=== PATIENT | female | born 1960 | race Hispanic/Latino ===

== ENCOUNTER → 2017-12-30 | Outpatient (CLI) | payer OTHER | END | disposition home or self-care (01) | LOC: RAH 08:38 | PROVIDERS: ATTEND Obstetrics & Gynecology | DX: Z12.31 Encounter for screening mammogram for malignant neoplasm of breast (principal) | CPT/HCPCS: 77067 ==

== ENCOUNTER 2019-01-21 16:31 | Emergency (ER) | payer OTHER ==
[2019-01-21] MEDS ORDERED: IBUPROFEN 200 MG TAB ONE (16:46)
[2019-01-21] MEDS ORDERED: IBUPROFEN 400 MG TABLET ONE (16:46)
[2019-01-21] MEDS ORDERED: MORPHINE SULFATE 4 MG/1ML SYG ONE ×2 (17:12→18:58)
[2019-01-21] MEDS ORDERED: ONDANSETRON HCL 4 MG/2 ML VIAL ONE (17:12)
[2019-01-21] MEDS ORDERED: KETOROLAC TROMETHAMINE 30MG/ML ONE (18:02)
== END 2019-01-21 17:56 | disposition home or self-care (01) ==
LOC: EDH 16:31
DX: S82.001A Unspecified fracture of right patella, initial encounter for closed fracture (principal); E78.5 Hyperlipidemia, unspecified; Z90.710 Acquired absence of both cervix and uterus; W01.0XXA Fall on same level from slipping, tripping and stumbling without subsequent striking against object, initial encounter; Y93.89 Activity, other specified; Y92.89 Other specified places as the place of occurrence of the external cause; Y99.8 Other external cause status
CPT/HCPCS: 29505; 73562; 96374; 96375; 96376; 99283; J1885; J2270 ×2; J2405

== ENCOUNTER 2019-10-31 22:02 | Inpatient (IN) | payer BC, SELFPAY ==
[~2019-10-31] VITALS: Ht 165.1 cm; Wt 77.6 kg
[2019-10-31] MEDS ORDERED: NITROGLYCERIN 0.4 MG SL TAB SL ONE (22:33)
[2019-10-31] MEDS ORDERED: ASPIRIN 325 MG TABLET ONE (22:34)
[2019-10-31 22:39] LABS: BASOPHILS % (AUTO) 0.6 % (0.0-5.0); EOSINOPHILS % (AUTO) 0.5 % (0.0-8.0); HEMATOCRIT 38.1 % (36-48); LYMPHOCYTES % (AUTO) 25.3 % (21.0-51.0); MEAN CORPUSCULAR HEMOGLOBIN 32.4 pg (27.0-33.0); MEAN CORPUSCULAR HGB CONC 34.6 g/dL (32.0-36.0); MEAN CORPUSCULAR VOLUME 93.6 fL (79-99); NEUTROPHILS % (AUTO) 65.6 % (40.0-77.0); NUCLEATED RED BLOOD CELLS 0.1 % (0.0-0.19); PLATELET COUNT (AUTO) 268 K/uL (130-400); RED BLOOD CELL COUNT(AUTO) 4.07 MIL/uL (4.00-5.50); RED CELL DISTRIBUTION WIDTH 12.9 % (11.0-15.5); WHITE BLOOD COUNT (AUTO) 9.1 K/uL (4.8-10.8)
[2019-10-31 22:50] LABS: CREATININE 0.7 mg/dL (0.5-1.5); POTASSIUM 3.8 mmol/L (3.5-5.1)
[2019-10-31 22:55] LABS: ALBUMIN 4.1 g/dL (3.5-5.0); BILIRUBIN,TOTAL 0.3 mg/dL (0.2-1.0); TOTAL PROTEIN, SERUM 7.5 g/dL (6.0-8.3)
[2019-11-01] VITALS (7 sets, daily range): BP systolic 104–134; BP diastolic 59–87
[2019-11-01] MEDS ORDERED: SODIUM CHLORIDE 0.9% 1000ML 1,000 ML IV SCH (00:15)
[2019-11-01] MEDS ORDERED: MORPHINE SULFATE 2 MG/ML 1ML SYG IVP PRN (00:15)
[2019-11-01] MEDS ORDERED: LEVO100 PO (01:34)
[2019-11-01] MEDS ORDERED: LISI10TA7 PO (01:34)
[2019-11-01] MEDS ORDERED: PREM3 PO (01:34)
[2019-11-01] MEDS ORDERED: NAPR-1023 PO (01:34)
[2019-11-01] MEDS ORDERED: NITROGLYCERIN 1GM/1 INCH PACKET TD ONE (03:42)
[2019-11-01 05:08] LABS: BASOPHILS % (AUTO) 0.7 % (0.0-5.0); EOSINOPHILS % (AUTO) 0.5 % (0.0-8.0); HEMATOCRIT 35.9 % (36-48); LYMPHOCYTES % (AUTO) 28.6 % (21.0-51.0); MEAN CORPUSCULAR HEMOGLOBIN 33.1 pg (27.0-33.0); MEAN CORPUSCULAR HGB CONC 34.9 g/dL (32.0-36.0); MONOCYTES % (AUTO) 9.4 % (3.0-13.0); NEUTROPHILS % (AUTO) 60.8 % (40.0-77.0); PLATELET COUNT (AUTO) 233 K/uL (130-400); RED BLOOD CELL COUNT(AUTO) 3.78 MIL/uL (4.00-5.50); RED CELL DISTRIBUTION WIDTH 12.8 % (11.0-15.5); WHITE BLOOD COUNT (AUTO) 9.9 K/uL (4.8-10.8)
[2019-11-01 05:23] LABS: INR 0.99 (0.85-1.15); PROTHROMBIN TIME 10.4 SEC (9.6-11.6)
[2019-11-01 05:28] LABS: ALBUMIN 3.6 g/dL (3.5-5.0); BILIRUBIN,TOTAL 0.4 mg/dL (0.2-1.0); CREATININE 0.5 mg/dL (0.5-1.5); POTASSIUM 3.8 mmol/L (3.5-5.1); TOTAL PROTEIN, SERUM 6.3 g/dL (6.0-8.3)
[2019-11-01 05:32] LABS: HEMOGLOBIN A1C 6.1 % (4.0-6.0)
[2019-11-01] MEDS: NITROGLYCERIN 1GM/1 INCH PACKET TD SCH ×3 (06:00→20:59)
--- NOTE | 2019-11-01 06:12 | NUR ---
critical trop level [ paged hospitalist store person for trop result dr ramirez returned page informed him of troponin level updated md on current medications ordered orders to add lipitor 40 and notify cardiology now for consult patient is asymptomatic ,warm and denies cp, sob, nausea/vomiting vss will continue to monitor
--- NOTE | 2019-11-01 06:28 | NUR ---
cardiology consult paged dr walden lead ruby on rails developer for pending morning consult as directed by dr ramirez. notified dr walden of consult and discussed labs and medications trop jump from 1.85 to 4.[address] walden stated there was nothing he was going to do at the moment but he would be by to see her shortly.
[2019-11-01] MEDS ORDERED: HEPARIN 25000 UNITS/250 ML D5W 250 ML IV SCH (07:00)
[2019-11-01] MEDS ORDERED: HEPARIN SODIUM 5000UNIT/ML 1ML VIAL SQ PRN (07:00)
[2019-11-01] MEDS ORDERED: HEPARIN SODIUM 10000 UNIT/ML 1ML VIAL IJ SCH (07:45)
--- NOTE | 2019-11-01 08:00 | NUR ---
ASSESSMENT / MD ROUNDS PT IS AAOX3 DENIES CP DENIES SOB DENIES NV NO COMPLAINTS, SITTING UPRIGHT IN BED. CALL LIGHT WITHIN REACH. DR CARLISLE AND DR BEKC ROUNDED, SAW PATIENT AND ORDERS RECEIVED. ORDERS CARRIED OUT.
[2019-11-01] MEDS: SODIUM CHLORIDE 0.9% 1000ML 1,000 ML IV SCH ×3 (08:05→21:51)
[2019-11-01] MEDS ORDERED: DiphenhydrAMINE HCL 50 MG/ML VIAL IVP PRN (08:15)
[2019-11-01] MEDS: METOPROLOL TARTRATE 25 MG TAB PO SCH ×2 (08:39→20:48)
[2019-11-01] MEDS: ASPIRIN 81MG TAB.CHEW PO SCH (08:39)
[2019-11-01] MEDS: FAMOTIDINE/PF 20 MG/2 ML VIAL IV SCH ×2 (08:39→20:48)
[2019-11-01] MEDS ORDERED: HEPARIN SODIUM 5000UNIT/ML 1ML VIAL SQ SCH (09:00)
[2019-11-01] MEDS ORDERED: METOPROLOL TARTRATE 25 MG TAB PO SCH (09:00)
--- NOTE | 2019-11-01 11:00 | NUR ---
STATUS PATIENT IS AAOX3 DENIES CP DENIES SOB, FAMILY IS AT BEDSIDE. PATIENT STATES SHE FEELS MUCH BETTER NOW COMPARED TO EARLY AM. STATES THAT THE MEDS SHE RECEIVED ARE MAKING HER FEEL BETTER. CALL LIGHT WITHIN REACH.
[2019-11-01] MEDS: ACETAMINOPHEN 325 MG TAB PO PRN ×2 (15:32→21:58)
--- NOTE | 2019-11-01 17:30 | NUR ---
STATUS RESTING IN BED, STATES SHE WANTS TO SLEEP, SHE DIDNT SLEEP WELL AT ALL LAST NIGHT. DENIED ANY PAIN. HEPARIN CONTINUES PER PROTOCOL.
--- NOTE | 2019-11-01 17:53 | NUR ---
INITIAL: Met w pt this afternoon to discuss dcp. Pt states that she lives w her spouse. Prior to admission she was independent w ambulation and ADLs. 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 Per pt she feels safe and comfortable to return home at or. CM to continue to follow and wait for Md recommendations. Addendum: 11/01/19 at 1758 by VIOLETTA POLANCO Amended: Links added.
[2019-11-01] MEDS: ATORVASTATIN CALCIUM 40 MG TABLET PO SCH (20:48)
[2019-11-02] VITALS (12 sets, daily range): BP systolic 104–159; BP diastolic 55–113
--- NOTE | 2019-11-02 04:00 | NUR ---
Heparin drip Heparin drip stopped as per MD orders at 4am. No bleeding noted, patient alert oriented, currently denies any chest pain. Aware of Left hearth cath procedure for today.
[2019-11-02 04:48] LABS: BASOPHILS % (AUTO) 2.8 % (0.0-5.0); EOSINOPHILS % (AUTO) 2.2 % (0.0-8.0); HEMATOCRIT 34.4 % (36-48); MEAN CORPUSCULAR HEMOGLOBIN 33.1 pg (27.0-33.0); MEAN CORPUSCULAR HGB CONC 34.7 g/dL (32.0-36.0); MEAN CORPUSCULAR VOLUME 95.3 fL (79-99); MONOCYTES % (AUTO) 9.4 % (3.0-13.0); NEUTROPHILS % (AUTO) 45.6 % (40.0-77.0); PLATELET COUNT (AUTO) 203 K/uL (130-400); RED BLOOD CELL COUNT(AUTO) 3.61 MIL/uL (4.00-5.50); WHITE BLOOD COUNT (AUTO) 5.8 K/uL (4.8-10.8)
[2019-11-02] MEDS: NITROGLYCERIN 1GM/1 INCH PACKET TD SCH ×4 (05:55→22:00)
--- NOTE | 2019-11-02 07:20 | NUR ---
STATUS PT TAKEN TO CLIENT DEVELOPMENT MANAGER VIA BED. TELE MADI REMOVED.
[2019-11-02] MEDS ORDERED: HEPARIN SODIUM 1000UNIT/ML 10ML VIAL ONE (07:23)
[2019-11-02] MEDS ORDERED: NITROGLYCERIN 5 MG/ML 10 ML VIAL IV ONE (07:23)
[2019-11-02] MEDS ORDERED: BIVALIRUDIN 250 MG/VIAL IV ONE (07:23)
[2019-11-02] MEDS ORDERED: LIDOCAINE HCL 2% 20ML ONE (07:24)
[2019-11-02] MEDS ORDERED: IOHEXOL 350 MG/ML 100ML INFUS..BTL IV ONE (07:24)
[2019-11-02] MEDS ORDERED: IOHEXOL-350 50ML VIAL IV ONE ×2 (07:24→08:04)
[2019-11-02] MEDS ORDERED: FENTANYL CITRATE PF 50 MCG/1 ML 2ML VIAL ONE (07:43)
[2019-11-02] MEDS ORDERED: MIDAZOLAM HCL 1 MG/ML 2ML VIAL ONE (07:43)
[2019-11-02] MEDS ORDERED: SODIUM CHLORIDE 0.9% 1000ML 1,000 ML IV SCH (08:45)
--- NOTE | 2019-11-02 08:50 | NUR ---
STATUS/AM ADMISSION PT RECEIVED FROM PERMACULTURE CONTRACTOR VIA BED; S/P C BY DR BECK. PERCLOSE RT GROIN. DSG DRY & INTACT. PUNCTURES SITE SOFT, NON-TENDER. NO BLEEDING, NO HEMATOMA NOTED. (+) BILATERAL PEDAL PULSES. BLE PINK & WARM TO TOUCH. BEDREST X 6 HRS. PT A/O X 3. NO SOB. NO DISTRESS NOTED. (+) ANXIETY. DENIES CHEST PAIN OR DISCOMFORT. DENIES PALPITATIONS. DENIES INCISIONAL PAIN. TELE: SR. DENIES N/V AND/OR DIARRHEA. 0.9% NACL INFUSING @ 100 ML/HR X 6HRS. INSTRUCTED TO CALL FOR ASSISTANCE. CALL ISAEL W/IN REACH.
--- NOTE | 2019-11-02 08:50 | NUR ---
CORRECTION BEDREST X 4 HRS.
[2019-11-02] MEDS ORDERED: PNEUMOCOCCAL VACCINE POLYVALENT 0.5 ML/VIAL [PPV] IM ONE (09:00)
[2019-11-02] MEDS: SODIUM CHLORIDE 0.9% 1000ML 1,000 ML IV SCH (09:01)
[2019-11-02] MEDS: ASPIRIN 81MG TAB.CHEW PO SCH (09:01)
[2019-11-02] MEDS: FAMOTIDINE 20MG TAB 20 MG TAB PO SCH ×2 (09:44→20:18)
[2019-11-02] MEDS: CARVEDILOL 12.5 MG TABLET PO SCH ×2 (09:45→20:19)
[2019-11-02] MEDS: LISINOPRIL 10 MG TABLET PO SCH ×2 (09:45→20:19)
[2019-11-02] MEDS: ACETAMINOPHEN 325 MG TAB PO PRN (10:19)
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
--- NOTE | 2019-11-02 12:30 | NUR ---
STATUS BEDREST COMPLETE. RT GROIN DSG DRY & INTACT. NO BLEEDING, NO HEMATOMA NOTED. PUNCTURE SITE SOFT. NON-TENDER. (+) BILATERAL PEDAL PULSES. BLE PINK & WARM TO TOUCH. PT ASSISTED TO SIT-UP IN BED. TOLERATED WELL. NO DISTRESS NOTED. DENIES CHEST PAIN OR DISCOMFORT. DENIES PALPITATIONS. DENIES INCISIONAL PAIN. CALL KIRKLAND W/IN REACH.
[2019-11-02] MEDS: ATORVASTATIN CALCIUM 40 MG TABLET PO SCH (20:18)
--- NOTE | 2019-11-02 23:43 | NUR ---
Patient was in room 427 at shift change and VSS, no pain or complaints. Patient looked comfortable with family at bedside. At 2100, health science writer came in to give the 2100 medication prescribed by the MD. Heating Worker went through each medication and made sure she understood what the med was for and what dose. She seemed to understand Polish, but a family member helped translate to verify comprehension. When staff left room, pateint was satisfied and content with care. cosmetics supervisor wanted patient to be moved to the 2C pod for various reasons, so health science writer went to room at 2215 and explained the room change. Patient was upset and stated she had hot flashes and was angry. Vital signs checked and were [place], but she stated she was upset because the nurse (health science writer) did not speak [place]. She also stated that she was getting an extra pill, even though multiple staff explained to her that the MD ordered the medication, not the nurses, explaining the use for each one. When she was transferred to room 219, she refused to enter the room because of the ICU area. Staff explained to her that this was where she belonged, and that these rooms are for TELE overflow. She eventually consented to enter the room, but refused to have an Polish speaking nurse taking care of her. Assignments were changed to accommodate patient, and she is waiting to speak to the MD in the morning concerning medication. She stated that she had a bad experience because of the Polish speaking staff making her uncomfortable, and wants to be spoked to in her [place] language.
[2019-11-03] VITALS: BP 124/62
[2019-11-03] MEDS: SODIUM CHLORIDE 0.9% 1000ML 1,000 ML IV SCH (00:05)
[2019-11-03 03:59] LABS: HEMATOCRIT 34.5 % (36-48); MEAN CORPUSCULAR HEMOGLOBIN 31.5 pg (27.0-33.0); MEAN CORPUSCULAR HGB CONC 33.9 g/dL (32.0-36.0); MEAN CORPUSCULAR VOLUME 92.7 fL (79-99); PLATELET COUNT (AUTO) 236 K/uL (130-400); RED BLOOD CELL COUNT(AUTO) 3.72 MIL/uL (4.00-5.50); RED CELL DISTRIBUTION WIDTH 12.9 % (11.0-15.5); WHITE BLOOD COUNT (AUTO) 7.4 K/uL (4.8-10.8)
[2019-11-03 04:02] VITALS: BP 98/54
[2019-11-03 04:07] LABS: CREATININE 0.6 mg/dL (0.5-1.5); POTASSIUM 3.8 mmol/L (3.5-5.1)
[2019-11-03] MEDS: NITROGLYCERIN 1GM/1 INCH PACKET TD SCH (05:51)
[2019-11-03] MEDS ORDERED: LEVOTHYROXINE 50 MCG TABLET PO SCH (06:30)
[2019-11-03 07:58] VITALS: BP 116/73
[2019-11-03] MEDS: FAMOTIDINE 20MG TAB 20 MG TAB PO SCH (09:23)
[2019-11-03] MEDS: CARVEDILOL 12.5 MG TABLET PO SCH (09:26)
[2019-11-03] MEDS: ASPIRIN 81MG TAB.CHEW PO SCH (09:26)
[2019-11-03] MEDS: LISINOPRIL 10 MG TABLET PO SCH (09:27)
[2019-11-03 11:12] VITALS: BP 114/61
[2019-11-03] MEDS ORDERED: LEVO50TA4 PO (16:06)
[2019-11-03] MEDS ORDERED: ASPI-1005 PO (16:06)
[2019-11-03] MEDS ORDERED: CARV12.580 PO (16:06)
[2019-11-03] MEDS ORDERED: LISI10TA7 PO (16:06)
--- NOTE | 2019-11-03 17:29 | NUR ---
DISCHARGE PT VERBALIZED UNDERSTANDING OF DISCHARGE INSTRUCTIONS AND MEDICATION. TO PRIVATE VEHICLE VIA WHEEL CHAIR, VS STABLE
== END 2019-11-03 17:29 | disposition home or self-care (01) | DRG 281 ==
LOC: EDH 22:02 → EDHIP 11-01 00:06 → 4DH 11-01 00:45 → 2CH 11-02 21:37
PROVIDERS: ADMIT Internal Medicine; ATTEND Internal Medicine
PROC: B2111ZZ Fluoroscopy of Multiple Coronary Arteries using Low Osmolar Contrast (ICD-10-PCS; principal; 2019-11-02)
PROC: B2151ZZ Fluoroscopy of Left Heart using Low Osmolar Contrast (ICD-10-PCS; 2019-11-02)
PROC: 4A023N7 Measurement of Cardiac Sampling and Pressure, Left Heart, Percutaneous Approach (ICD-10-PCS; 2019-11-02)
DX: I21.4 Non-ST elevation (NSTEMI) myocardial infarction (principal); I51.81 Takotsubo syndrome; I42.9 Cardiomyopathy, unspecified; I10 Essential (primary) hypertension; E78.5 Hyperlipidemia, unspecified; R73.9 Hyperglycemia, unspecified; E03.9 Hypothyroidism, unspecified; F41.9 Anxiety disorder, unspecified; I25.2 Old myocardial infarction
CPT/HCPCS: 36415; 71045; 80048; 80053; 80061; 82550; 83036; 84443; 84484; 85025; 85027; 85610; 85730; 90732; 93005; 93306; 93458; 99156; 99157; 99291; C1760; C1894; G0378; J0583; J1200; J1644; J2250; J3010; J3490; J7030; Q9967

== ENCOUNTER → 2020-09-02 | Outpatient (CLI) | payer OTHER ==
[~2020-09-02] MED LIST: ASPI-1005 PO; CARV12.580 PO; LEVO50TA4 PO; LISI10TA7 PO; NAPR-1023 PO; PREM3 PO
== END | disposition home or self-care (01) ==
LOC: SHCH 13:34
PROVIDERS: ATTEND Internal Medicine Cardiovascular Disease
DX: R07.9 Chest pain, unspecified (principal); R06.02 Shortness of breath
CPT/HCPCS: 93306; 93356

== ENCOUNTER → 2021-03-16 | Outpatient (CLI) | payer OTHER ==
[~2021-03-16] MED LIST changes: +LISI10TA24 PO; -LISI10TA7 PO
== END ==
LOC: RAH 10:01
PROVIDERS: ATTEND Obstetrics & Gynecology
DX: Z12.31 Encounter for screening mammogram for malignant neoplasm of breast (principal)
CPT/HCPCS: 77067

== ENCOUNTER → 2022-08-16 | Outpatient (CLI) | payer OTHER | END | disposition home or self-care (01) | LOC: RAH 12:17 | PROVIDERS: ATTEND Obstetrics & Gynecology | DX: N63.10 Unspecified lump in the right breast, unspecified quadrant (principal); N63.20 Unspecified lump in the left breast, unspecified quadrant; N64.4 Mastodynia; N60.11 Diffuse cystic mastopathy of right breast; N60.12 Diffuse cystic mastopathy of left breast ==

== ENCOUNTER 2023-03-11 13:35 | Emergency (ER) | payer OTHER ==
[~2023-03-11] VITALS: Ht 160 cm; Wt 73.9 kg
[2023-03-11] MEDS ORDERED: LORA10TA7 PO (17:41)
[2023-03-11] MEDS ORDERED: BENZ200C53 PO (17:41)
[2023-03-11 18:12] VITALS: BP 126/80
== END 2023-03-11 18:13 | disposition home or self-care (01) ==
LOC: EDH 13:35
DX: J06.9 Acute upper respiratory infection, unspecified (principal); E78.00 Pure hypercholesterolemia, unspecified; I10 Essential (primary) hypertension; E03.9 Hypothyroidism, unspecified; Z79.1 Long term (current) use of non-steroidal anti-inflammatories (NSAID); Z79.82 Long term (current) use of aspirin; Z90.710 Acquired absence of both cervix and uterus; Z79.899 Other long term (current) drug therapy; Z20.822 Contact with and (suspected) exposure to COVID-19
CPT/HCPCS: 99283; 87635; 87880; 87804 ×2; C9803